=== PATIENT | male | born 1950 | race Caucasian/White ===

== ENCOUNTER 2025-06-16 12:31 | Emergency (ER) | payer MEDICARE ==
[2025-06-16] MEDS ORDERED: Ondansetron PF 4 MG/2 ML Vial ONE (13:35)
[2025-06-16] MEDS ORDERED: Orphenadrine Citrate 60 MG/2 ML VIAL ONE (13:35)
[2025-06-16] MEDS ORDERED: Ketorolac Tromethamine 30 MG (1 mL) VIAL ONE (13:36)
== END 2025-06-16 15:14 | disposition home or self-care (01) ==
LOC: CSHERS 12:31
DX: M54.42 Lumbago with sciatica, left side (principal); I10 Essential (primary) hypertension
CPT/HCPCS: J1885; J2270; J2360; J2405